=== PATIENT | female | born 1985 | race Caucasian/White ===

== ENCOUNTER 2016-09-08 14:33 | Emergency (ER) | payer MEDICAID ==
[~2016-09-08] VITALS: Ht 160 cm; Wt 95.0 kg
[2016-09-08 14:35] VITALS: BP 126/88; PULSE 80; RESP 20; TEMP 98.3; O2SAT 98
[2016-09-08 15:28] LABS: AUTOMATED NEUTROPHIL # 8.3 TH/MM3 (1.8-7.7); BASOPHIL # 0.1 TH/MM3 (0-0.2); BASOPHIL % 0.5 % (0.0-2.0); EOSINOPHIL # 0.7 TH/MM3 (0-0.4); EOSINOPHIL % 5.5 % (0.0-4.0); HEMATOCRIT 41.9 % (35.0-46.0); HEMO FLAGS DIFF FINAL; LYMPH % 20.7 % (9.0-44.0); LYMPHOCYTE # 2.6 TH/MM3 (1.0-4.8); MEAN CELL VOLUME 85.7 FL (80.0-100.0); MEAN CORPUSCULAR HEMOGLOBIN 28.6 PG (27.0-34.0); MEAN CORPUSCULAR HGB CONC 33.4 % (32.0-36.0); MONO % 8.1 % (0.0-8.0); NEUT % 65.2 % (16.0-70.0); PLATELET COUNT 359 TH/MM3 (150-450); RED BLOOD COUNT 4.89 MIL/MM3 (4.00-5.30); RED CELL DISTRIBUTION WIDTH 12.5 % (11.6-17.2); WHITE BLOOD COUNT 12.8 TH/MM3 (4.0-11.0)
[2016-09-08] MEDS ORDERED: PREN29TA PO (15:31)
[2016-09-08 15:46] LABS: BACTERIA, URINE MOD /hpf; BLOOD, URINE LARGE (NEG); COMMENT (UR) CULTURE INDICATED; CULTURE IF INDICATED CULTURE INDICATED; GLUCOSE,URINE NEG (NEG); KETONE, URINE NEG (NEG); NITRITE,URINE NEG (NEG); PH, URINE 5.5 (5.0-8.5); URINE COLOR RED (YELLW/STRAW)
--- NOTE | 2016-09-08 15:50 | PD ---
HPI Chief Complaint: Related Problem Time Seen by Provider: 15:50 Travel History International Travel<30 days: No Contact w/Intl Traveler<30days: No Traveled to known affect area: No History of Present Illness HPI 31 YO (~11 weeks gestation by dates) female presents to the ED for evaluation of 1 hour history of lower abdominal pain and vaginal bleeding. Sudden onset. Patient denies fever, chills, anorexia, nausea, vomiting, dysuria , vaginal discharge, back pain. LMP June 17 PFS Past Medical History ?: LMP: 06/17/16 Social History Alcohol Use: No Tobacco Use: No Allergies-Medications (Allergen,Severity, Reaction): Coded Allergies: No Known Allergies (Unverified , 09/08/16) Reported Meds & Prescriptions Reported Meds & Active Scripts Active Keflex (Cephalexin) 500 Mg Cap 500 Mg PO Q12H 7 Days Reported Plus Iron 29-1 mg ( Vit-Iron Carbonyl) 1 Tab Tab 1 Tab PO DAILY Review of Systems Except as stated in HPI: all other systems reviewed are Neg Physical Exam Narrative GENERAL: Well-nourished, well-developed white female in no acute distress. SKIN: Focused skin assessment warm/dry. HEAD: Normocephalic. EYES: No scleral icterus. No injection or drainage. NECK: Supple, trachea midline. No JVD or lymphadenopathy. CARDIOVASCULAR: Regular rate and rhythm without murmurs, gallops, or rubs. RESPIRATORY: Breath sounds equal bilaterally. No accessory muscle use. GASTROINTESTINAL: Abdomen soft, nondistended. Mild to moderate suprapubic tenderness. GENITOURINARY: Normal external genitalia without lesions or erythema. Vaginal vault with scant blood. No drainage. Cervix thick and firm. Os closed without drainage. MUSCULOSKELETAL: No cyanosis, or edema. Ambulatory. Moves extremities spontaneously. BACK: Nontender without obvious deformity. No CVA tenderness. Data Data Last Documented VS Vital Signs Date Time Temp Pulse Resp B/P Pulse Ox O2 Delivery O2 Flow Rate FiO2 09/08/16 15:38 18 09/08/16 14:35 98.3 80 126/88 98 Orders Complete Blood Count With Diff (09/08/16 14:39) Basic Metabolic Panel (Bmp) (09/08/16 14:39) Urinalysis - C+S If Indicated (09/08/16 14:39) Beta Hcg (Quant/Titer) (09/08/16 14:39) Urine Culture (09/08/16 14:55) Ed Poc Ultrasound (09/08/16 15:59) Us Pelvis (Ques Pr/Ect)W Trans (09/08/16 ) Acetaminophen (Tylenol) (09/08/16 20:00) Labs Laboratory Tests Test 09/08/16 14:55 White Blood Count 12.8 TH/MM3 Red Blood Count 4.89 MIL/MM3 Hemoglobin 14.0 GM/DL Hematocrit 41.9 % Mean Corpuscular Volume 85.7 FL Mean Corpuscular Hemoglobin 28.6 PG Mean Corpuscular Hemoglobin 33.4 % Concent Red Cell Distribution Width 12.5 % Platelet Count 359 TH/MM3 Mean Platelet Volume 8.6 FL Neutrophils (%) (Auto) 65.2 % Lymphocytes (%) (Auto) 20.7 % Monocytes (%) (Auto) 8.1 % Eosinophils (%) (Auto) 5.5 % Basophils (%) (Auto) 0.5 % Neutrophils # (Auto) 8.3 TH/MM3 Lymphocytes # (Auto) 2.6 TH/MM3 Monocytes # (Auto) 1.0 TH/MM3 Eosinophils # (Auto) 0.7 TH/MM3 Basophils # (Auto) 0.1 TH/MM3 CBC Comment DIFF FINAL Differential Comment Urine Color RED Urine Turbidity HAZY Urine pH 5.5 Urine Specific [place] 1.023 Urine Protein 30 mg/dL Urine Glucose (UA) NEG mg/dL Urine Ketones NEG mg/dL Urine Occult Blood LARGE Urine Nitrite NEG Urine Bilirubin NEG Urine Urobilinogen LESS THAN 2.0 MG/DL Urine Leukocyte Esterase NEG Urine RBC /hpf Urine WBC 3 /hpf Urine Bacteria MOD /hpf Microscopic Urinalysis Comment CULTURE INDICATED Sodium Level 140 MEQ/L Potassium Level 3.7 MEQ/L Chloride Level 107 MEQ/L Carbon Dioxide Level 25.6 MEQ/L Anion Gap 7 MEQ/L Blood Urea Nitrogen 10 MG/DL Creatinine 0.61 MG/DL Estimat Glomerular Filtration 114 ML/MIN Rate Random Glucose 82 MG/DL Calcium Level 8.5 MG/DL Human Chorionic Gonadotropin, 3415 MIU/ML Quant MDM Medical Decision Making Medical Screen Exam Complete: Yes Emergency Medical Condition: Yes Differential Diagnosis threatened versus ectopic versus bleeding in first trimester versus blighted ovum versus UTI versus other Narrative Course 31 YO (~11 weeks gestation by dates) female presents to the ED for evaluation of 1 hour history of lower abdominal pain and vaginal bleeding. Sudden onset. Patient denies fever, chills, anorexia, nausea, vomiting, dysuria , vaginal discharge, back pain. LMP June 17. Patient's youngest child is 7 years old. She has never had a RhoGAM shot. Vitals reviewed. Physical exam reveals mild to moderate suprapubic tenderness, scant blood in the vaginal vault. Cervix thick, firm, closed. Beta hCG 3415. UA with moderate bacteria. We performed a bedside ultrasound, no discernible was noted. Transvaginal ultrasound reveals a tiny cystic structure within the uterus, too early to identify as a . I discussed the results of the workup with the patient. She was provided a copy of the beta hCG results as well as the ultrasound results. She has follow-up at home in [place] this week. She is instructed to have the beta hCG redrawn within 72 hours, follow up with the [facility]. She indicated understanding of the instructions and is agreeable to the care plan. She is stable and discharged home. Diagnosis Primary Impression: First trimester bleeding Additional Impression: Asymptomatic bacteriuria during Referrals: [employer] [facility] Patient Instructions: First Trimester Vaginal Bleed (ED), General Instructions Additional Instructions: Rest, hydrate. Redraw of the hormone beta hCG in 72 hours. Follow-up with the debt counselor. Return to the ED for any urgent or emergent medical condition. Med/Other Pt SpecificInfo: Prescription(s) given Scripts Cephalexin (Keflex)500 Mg [id number] Mg PO Q12H 7 Days Ref 0 Prov:Kaylee Main MD 09/08/16 Disposition: 01 DISCHARGE HOME Condition: Stable Aline Steele Sep 08, 2016 15:50
[2016-09-08 15:53] LABS: BICARBONATE 25.6 MEQ/L (21.0-32.0); POTASSIUM 3.7 MEQ/L (3.5-5.1)
--- NOTE | 2016-09-08 19:33 | RADRPT ---
EXAM DATE/TIME: 09/08/2016 18:27 [facility] COMPARISON: No previous studies available for comparison. INDICATIONS : Pelvic pain and bleeding with . LAB(S): Beta-hC MEDICAL HISTORY : . Ovarian cysts. Polycystic ovarian syndrome. SURGICAL HISTORY : Colposcopy. ENCOUNTER: Initial ACUITY: 1 day PAIN SCORE: 6/10 LOCATION: Bilateral pelvis MEASUREMENTS: UTERUS: 12.4 x 8.0 x 6.7 cm ENDOMETRIAL STRIPE: >20 mm RIGHT OVARY: 3.4 x 2.1 x 1.9 cm LEFT OVARY: 3.1 x 2.8 x 1.6 cm FREE FLUID: Yes Trace in posterior cul de sac. CROWN RUMP LENGTH: Non visualized. = WKS DAYS FHR: Non visualized. BPM FINDINGS: UTERUS: The uterus is retroverted. A thickened endometrial stripe is observed. A tiny cystic structure is see n involving the endometrial canal measuring 7 mm in maximum dimension. No pole or yolk sac obse rved. Small nabothian cysts and cervical calcifications observed. RIGHT OVARY: Ovary contains no mass or significant cystic lesion. LEFT OVARY: Ovary contains no mass or significant cystic lesion. MISCELLANEOUS: A trace amount of free fluid within the cul-de-sac. CONCLUSION: 1. A tiny cystic structure within the endometrium most likely relating to a gestational sac. This is below the threshold for accurate ultrasound detection of gestational age. 2. Trace amount of free fluid within the cul-de-sac. Bar Pierre Jr., MD on September 08, 2016 at 19:28 Board Certified Radiologist. This report was verified electronically.
[2016-09-08] MEDS ORDERED: CEPH-460 PO (19:46)
[2016-09-08] MEDS ORDERED: ACETAMINOPHEN 325 MG TAB PO ONE (20:00)
== END 2016-09-08 20:30 | disposition home or self-care (01) ==
LOC: NEPD 14:33
DX: O46.91 Antepartum hemorrhage, unspecified, first trimester (principal); O26.891 Other specified pregnancy related conditions, first trimester; R82.71 Bacteriuria; R10.30 Lower abdominal pain, unspecified; Z3A.11 11 weeks gestation of pregnancy
CPT/HCPCS: 76700; 76817; 80048; 81001; 84702; 85025; 87086; 99284